=== PATIENT | female | born 1995 | race Two or more races ===

== ENCOUNTER 2020-05-24 21:20 | Inpatient (IN) | payer MEDICAID ==
[~2020-05-24] VITALS: Ht 165.1 cm; Wt 69.1 kg
[2020-05-24 22:25] LABS: GLUCOSE,POINT OF CARE 90 MG/DL (70-110)
[2020-05-24 22:31] LABS: BASOPHILS % (AUTO) 0.6 % (0.0-2.0); EOSINOPHILS % (AUTO) 0.1 % (1.0-6.0); HEMATOCRIT 42.2 % (36-46); HEMOGLOBIN 14.3 g/dL (12.0-16.0); LYMPHOCYTES # (AUTO) 1.7 K/uL (1.0-4.8); LYMPHOCYTES % (AUTO) 17.8 % (22.0-44.0); MEAN CORPUSCULAR HEMOGLOBIN 30.8 pg (26.0-34.0); MEAN CORPUSCULAR HGB CONC 33.8 G/dL (31.0-37.0); MEAN CORPUSCULAR VOLUME 91 fL (80-100); MONOCYTES # (AUTO) 0.6 K/uL (0.1-1.0); MONOCYTES % (AUTO) 6.4 % (2.0-9.0); NEUTROPHILS # (AUTO) 7.2 K/uL (1.8-7.7); NEUTROPHILS % (AUTO) 75.1 % (40.0-70.0); PLATELET COUNT (AUTO) 309 K/uL (150-450); RED BLOOD CELL COUNT(AUTO) 4.63 MIL/uL (4.00-5.20); RED CELL DISTRIBUTION WIDTH 12.9 % (11.5-14.5)
[2020-05-24 22:42] LABS: ANION GAP 11 mmol/L (8-16); CALCIUM, TOTAL 9.6 mg/dL (8.8-10.5); CARBON DIOXIDE 24 mmol/L (22-29); CHLORIDE 101 mmol/L (98-107); CREATININE 0.89 mg/dL (0.60-1.30); GLOMERULAR FILTR. RATE CALC > 60 mL/min (>60); GLUCOSE,RANDOM 97 mg/dL (70-110); POTASSIUM 3.6 mmol/L (3.5-5.1); SODIUM SERUM 136 mmol/L (136-145); UREA NITROGEN, BLOOD 11 mg/dL (7-18)
[2020-05-24] MEDS ORDERED: ACETAMINOPHEN 500 MG TABLET PO ONE (22:45)
[2020-05-24 22:54] LABS: ALANINE AMINOTRANSFERASE 29 U/L (12-78); ALKALINE PHOSPHATASE 63 U/L (46-116); ASPARTATE AMINOTRANSFERASE 19 U/L (15-37); BILIRUBIN,TOTAL 0.7 mg/dL (0.1-1.0); HCG,QUANTITATIVE < 1 mIU/mL (0-6); LIPASE 54 U/L (73-393); TOTAL PROTEIN, SERUM 7.9 g/dL (6.4-8.2)
[2020-05-24 23:18] LABS: COVID AG,FIA SOURCE NASOPHARYNGEAL
[2020-05-25] MEDS ORDERED: LORazepam 2 MG/ML VIAL IM ONE (01:00)
[2020-05-25] MEDS ORDERED: DiphenhydrAMINE HCL 50 MG/ML VIAL IM ONE (01:00)
[2020-05-25] MEDS ORDERED: HALOPERIDOL LACTATE 5 MG/ML VIAL IM ONE (01:00)
[2020-05-25 01:37] LABS: AMPHET/METH SCREEN,URINE NEGATIVE (NEGATIVE); BARBITURATE SCREEN, URINE NEGATIVE (NEGATIVE); BENZODIAZEPINES SCREEN,URINE NEGATIVE (NEGATIVE); CANNABINOID SCREEN,URINE NEGATIVE (NEGATIVE); COCAINE SCREEN,URINE NEGATIVE (NEGATIVE); METHADONE SCREEN, URINE NEGATIVE (NEGATIVE); OPIATE SCREEN,URINE NEGATIVE (NEGATIVE)
[2020-05-25 01:38] LABS: PHENCYCLIDINE SCREEN,URINE NEGATIVE (NEGATIVE)
[2020-05-25] MEDS ORDERED: QUEtiapine FUMARATE 100 MG TABLET PO PRN (02:00)
[2020-05-25] MEDS ORDERED: LORazepam 2 MG TABLET PO PRN (02:00)
[2020-05-25 03:38] LABS: APPEARANCE,URINE CLOUDY (CLEAR); BILIRUBIN,URINE NEGATIVE (NEGATIVE); GLUCOSE, URINE (UA) NEGATIVE (NEGATIVE); KETONES,URINE >=80 mg/dL (NEGATIVE); LEUKOCYTE ESTERASE ,URINE SMALL (NEGATIVE); NITRATE,URINE NEGATIVE (NEGATIVE); OCCULT BLOOD,URINE LARGE (NEGATIVE); PH,URINE 6.5 (5.0-8.0); PROTEIN,URINE POS 1+ (NEGATIVE); UROBILINOGEN,URINE 0.2 mg/dL (<=1.0)
[2020-05-25 04:01] LABS: BACTERIA,URINE Many /HPF (None Seen); RBC,URINE Full Field /HPF (0-2)
[2020-05-25 04:02] LABS: SQUAMOUS EPITHELIAL CELL,UR Moderate /LPF (None Seen)
[2020-05-25] MEDS ORDERED: ZIPRASIDONE MESYLATE 20 MG/VIAL IM ONE (05:15)
[2020-05-25] MEDS ORDERED: DOCUSATE SODIUM 100 MG CAPSULE PO PRN (07:45)
[2020-05-25] MEDS ORDERED: IBUPROFEN 400 MG TABLET PO PRN (07:45)
[2020-05-25] MEDS ORDERED: ALBUTEROL SULFATE HFA 90 MCG/PUFF 8 GM INHALER IH PRN (07:45)
[2020-05-25] MEDS ORDERED: CloNIDine HCL 0.1 MG TABLET PO PRN (07:45)
[2020-05-25] MEDS ORDERED: MAG HYDROX/AL HYDROX/SIMETH ES 30 ML SUSPENSION UDCUP PO PRN (07:45)
[2020-05-25] MEDS ORDERED: ACETAMINOPHEN 325 MG TABLET PO PRN (07:45)
[2020-05-25] MEDS ORDERED: MAGNESIUM HYDROXIDE SUSPENSION 30 ML UDCUP PO PRN (07:45)
[2020-05-25] MEDS ORDERED: LOPERAMIDE HCL 2 MG CAPSULE PO PRN (07:45)
[2020-05-25] MEDS ORDERED: PETROLATUM,WHITE 28 GM JELLY TP PRN (07:45)
[2020-05-25] MEDS ORDERED: NICOTINE 14 MG/24 HOUR PATCH TD PRN (07:45)
[2020-05-25] MEDS ORDERED: ONDANSETRON HCL 4 MG TABLET PO PRN (07:45)
[2020-05-25] MEDS ORDERED: GuaiFENesin/D-METHORPHAN [SUGAR-FREE] 200-20MG/10 ML SYRUP UDCUP PO PRN (07:45)
[2020-05-25 13:35] VITALS: BP 127/71
[2020-05-25] MEDS ORDERED: PNEUMOCOCCAL VACCINE POLYVALENT 0.5 ML VIAL [PPSV23] IM ONE (14:30)
[2020-05-25 16:29] VITALS: BP 132/76
[2020-05-26 00:16] VITALS: BP 125/72
[2020-05-26 08:22] VITALS: BP 127/87
[2020-05-26] MEDS: CEPHALEXIN MONOHYDRATE 500 MG CAPSULE PO SCH ×3 (09:15→16:36)
[2020-05-26 16:12] VITALS: BP 126/66
[2020-05-26] MEDS: LURASIDONE HCL 40 MG TABLET PO SCH (16:36)
[2020-05-27 01:28] VITALS: BP 134/82
[2020-05-27 08:35] VITALS: BP 134/68
[2020-05-27] MEDS: CEPHALEXIN MONOHYDRATE 500 MG CAPSULE PO SCH ×3 (08:50→17:47)
[2020-05-27 16:28] VITALS: BP 124/75
[2020-05-27] MEDS: LURASIDONE HCL 40 MG TABLET PO SCH (17:47)
[2020-05-28] VITALS: BP 114/83
[2020-05-28] MEDS: CEPHALEXIN MONOHYDRATE 500 MG CAPSULE PO SCH ×3 (08:44→16:53)
[2020-05-28 09:17] VITALS: BP 117/74
[2020-05-28 16:05] VITALS: BP 111/69
[2020-05-28] MEDS: LURASIDONE HCL 40 MG TABLET PO SCH (16:53)
[2020-05-28] MEDS: ZOLPIDEM TARTRATE 10 MG TABLET PO PRN (22:32)
[2020-05-29 03:08] VITALS: BP 112/69
[2020-05-29 08:59] VITALS: BP 119/68
[2020-05-29] MEDS: CEPHALEXIN MONOHYDRATE 500 MG CAPSULE PO SCH ×3 (09:39→16:59)
[2020-05-29 16:06] VITALS: BP 115/68
[2020-05-29] MEDS: LURASIDONE HCL 40 MG TABLET PO SCH (16:59)
[2020-05-30 03:35] VITALS: BP 119/79
[2020-05-30 08:22] VITALS: BP 129/64
[2020-05-30] MEDS: CEPHALEXIN MONOHYDRATE 500 MG CAPSULE PO SCH ×3 (08:47→16:34)
[2020-05-30 16:17] VITALS: BP 131/65
[2020-05-30] MEDS: LURASIDONE HCL 60 MG TABLET PO SCH (16:34)
[2020-05-30] MEDS: ZOLPIDEM TARTRATE 10 MG TABLET PO PRN (22:57)
[2020-05-31 05:34] VITALS: BP 130/84
[2020-05-31 08:11] VITALS: BP 123/78
[2020-05-31 16:20] VITALS: BP 123/67
[2020-05-31] MEDS: LURASIDONE HCL 60 MG TABLET PO SCH (16:47)
[2020-06-01 00:05] VITALS: BP 120/65
[2020-06-01 08:09] VITALS: BP 139/68
[2020-06-01] MEDS: DIVALPROEX SODIUM 500 MG DR TABLET PO SCH ×2 (10:53→20:07)
[2020-06-01 16:14] VITALS: BP 130/77
[2020-06-01] MEDS: LURASIDONE HCL 60 MG TABLET PO SCH (16:19)
[2020-06-02 00:44] VITALS: BP 129/89
[2020-06-02 08:54] VITALS: BP 122/70
[2020-06-02] MEDS: DIVALPROEX SODIUM 500 MG DR TABLET PO SCH ×2 (09:14→20:49)
[2020-06-02] MEDS: COLLOIDAL OATMEAL/DIMETH 227 GM LOTION TP SCH (09:15)
[2020-06-02 16:14] VITALS: BP 117/66
[2020-06-02] MEDS: LURASIDONE HCL 60 MG TABLET PO SCH (17:10)
[2020-06-03 06:07] VITALS: BP 130/75
[2020-06-03 09:12] VITALS: BP 120/71
[2020-06-03] MEDS: DIVALPROEX SODIUM 500 MG DR TABLET PO SCH ×2 (09:16→20:20)
[2020-06-03] MEDS: COLLOIDAL OATMEAL/DIMETH 227 GM LOTION TP SCH (09:16)
[2020-06-03] MEDS ORDERED: DIVA-112 PO (11:05)
[2020-06-03] MEDS ORDERED: LURA60TA PO (11:05)
[2020-06-03 16:11] VITALS: BP 137/87
[2020-06-03] MEDS: LURASIDONE HCL 60 MG TABLET PO SCH (16:36)
[2020-06-03 17:43] VITALS: BP 137/87
== END 2020-06-03 20:35 | disposition home or self-care (01) | DRG 750 ==
LOC: EMS 21:21 → B2S 05-25 11:30
DX: F20.0 Paranoid schizophrenia (principal); F15.90 Other stimulant use, unspecified, uncomplicated; K21.9 Gastro-esophageal reflux disease without esophagitis; L30.9 Dermatitis, unspecified; N39.0 Urinary tract infection, site not specified; F19.11 Other psychoactive substance abuse, in remission; F17.200 Nicotine dependence, unspecified, uncomplicated; F10.11 Alcohol abuse, in remission; Z20.828 Contact with and (suspected) exposure to other viral communicable diseases
CPT/HCPCS: 87086; 87426; G0480; J1200; J1630; J2060; J3486